=== PATIENT | female | born 1970 | race Caucasian/White ===

== ENCOUNTER 2018-05-22 21:16 | Emergency (ER) | payer MEDICAID, OTHER ==
[2018-05-22] MEDS: HYDROCODONE/APAP (5/325) TAB PO (22:38)
== END 2018-05-22 23:52 | disposition home or self-care (01) ==
LOC: FTE 21:16
DX: S62.637A Displaced fracture of distal phalanx of left little finger, initial encounter for closed fracture (principal); R40.2142 Coma scale, eyes open, spontaneous, at arrival to emergency department; R40.2362 Coma scale, best motor response, obeys commands, at arrival to emergency department; R40.2252 Coma scale, best verbal response, oriented, at arrival to emergency department; W23.0XXA Caught, crushed, jammed, or pinched between moving objects, initial encounter; Y92.9 Unspecified place or not applicable
CPT/HCPCS: 29130; 73140; 99283-25